=== PATIENT | female | born 1940 | race Two or more races ===

== ENCOUNTER 2019-09-25 22:21 | Emergency (ER) | payer OTHER ==
[~2019-09-25] VITALS: Ht 160 cm; Wt 65.0 kg
[2019-09-25] MEDS ORDERED: ACETAMINOPHEN 500 MG TABLET PO ONE (22:30)
[2019-09-25] MEDS ORDERED: IBUPROFEN 600 MG TABLET PO ONE (22:30)
--- NOTE | 2019-09-25 22:30 | NUR ---
assessment made. placed on gown. ERP at bedside.
--- NOTE | 2019-09-25 22:50 | NUR ---
patient to X ray.
[2019-09-25] MEDS ORDERED: IBUPROFEN 600 MG TABLET ONE (22:54)
[2019-09-25] MEDS ORDERED: ACETAMINOPHEN 500 MG TABLET ONE (22:54)
--- NOTE | 2019-09-25 23:21 | NUR ---
patient medicated for pain. awaiting X ray result.
--- NOTE | 2019-09-25 23:51 | NUR ---
preventative maintenance technician at bedside for splinting.
[2019-09-26] MEDS ORDERED: AMLO10TA8 PO
--- NOTE | 2019-09-26 01:05 | NUR ---
splinting done. sling applied. patient discharged with prescriptions and instruction. verbalized understanding.
[2019-09-26 01:06] VITALS: BP 141/76
== END 2019-09-26 01:10 | disposition home or self-care (01) ==
LOC: ED 22:47
DX: S42.321A Displaced transverse fracture of shaft of humerus, right arm, initial encounter for closed fracture (principal); I10 Essential (primary) hypertension; W18.30XA Fall on same level, unspecified, initial encounter; Y93.89 Activity, other specified; Y92.59 Other trade areas as the place of occurrence of the external cause; Y99.8 Other external cause status
CPT/HCPCS: 29105; 99283